=== PATIENT | female | born 1995 ===

== ENCOUNTER 2017-05-27 17:05 | Emergency (ER) | payer OTHER ==
[2017-05-27 17:37] VITALS: BP 118/84; PULSE 75; RESP 16; TEMP 99; O2SAT 96
--- NOTE | 2017-05-27 19:02 | EDPHY ---
H & P Stated Complaint: Anxiety attack;hx of anxiety;bilat ant rib soreness after hyperventilating HPI/ROS: CHIEF COMPLAINT: Anxiety attack HISTORY OF PRESENT ILLNESS: Patient complains of "I had the worst anxiety attack I've ever had." Symptoms started around 1:30 p.m.. This was right before she was supposed to head to the airport to fly back home to [place]. She felt anxious, sweaty, chest pain, tingling all 4 extremities. She says the symptoms were very severe and she felt as though she was going to from this. She contacted her mother and she recommended that she boat puller. She pulled over and contacted 911. She was evaluated by EMS. They recommended transfer to the hospital but she declined. She simply waited there until she felt better. This is approximately 1/2 to 2 hours later. She currently has no symptoms of any kind. She is just nervous that the symptoms were returned when she goes home. She specifically has no chest pain, no shortness of breath. No lower extremity erythema edema or pain. No recent travel or surgery. No history of venous thrombolic event. No other associated complaints or modifying factors. She was previously on medication for this, most recently July 2016. She has not seen anyone here in [place] for this. REVIEW OF SYSTEMS: Ten systems reviewed and are negative unless otherwise noted in the HPI PAST MEDICAL HISTORY: Anxiety disorder SOCIAL HISTORY: Lives in [facility]. Going to school at [employer] and just recently graduated FAMILY HISTORY: Noncontributory EXAMINATION General Appearance: Alert, no distress Head: normocephalic, atraumatic Eyes: Pupils equal and round, no conjunctival pallor or injection ENT, Mouth: Mucous membranes moist. Uvula midline. Airway widely patent. Neck: Normal inspection, supple, non-tender. Trachea midline Respiratory: Lungs are clear to auscultation. Cardiovascular: Regular rate and rhythm. No murmur. Gastrointestinal: Abdomen is soft and nontender Neurological: GCS 15. A&O, nonfocal, normal gait. No tremor. No dysmetria. Skin: Warm and dry, no rash Extremities: Nontender, no pedal edema Psychiatric: Mood and affect normal DIFFERENTIAL DIAGNOSES: Including but not limited to anxiety attack, anxiety, panic attack, depression, chest pain MDM: 6:55 p.m. Anxiety attack in a patient with known anxiety disorder. This was more severe than others, but she reports this as being the same as her previous anxiety attacks. She is currently symptom free at this time. No chest pain or shortness of breath. Vital signs are within normal limits. She is not suicidal or homicidal. She shows no outward signs of depression or inability to care for self. I will discharge her home with short course of hydroxyzine and short course of Ativan. She is actually supposed to be flying back home to [place] today. She will do so tomorrow. She will follow up with primary care physician in [place]. Return to emergency department for return of symptoms. She is comfortable with this plan and discharged home in stable condition. SUPERVISION: This patient was independently evaluated without direct examination by the attending physician. Case was discussed with attending physician. Source: Patient Exam Limitations: No limitations - Personal History LMP (Females 10-55): 8-14 Days Ago Current Tetanus Diphtheria and Acellular Pertussis (TDAP): Yes - Medical/Surgical History Other PMH: anxiety attacks - Social History Smoking Status: Never smoked Constitutional: Initial Vital Signs Temperature (C) 99.0 F 05/27/17 17:25 Heart Rate 75 05/27/17 17:25 Respiratory Rate 16 05/27/17 17:25 Blood Pressure 118/84 H 05/27/17 17:25 O2 Sat (%) 96 05/27/17 17:25 O2 Delivery Mode Room Air Allergies/Adverse Reactions: No Known Allergies Allergy (Unverified 05/27/17 17:36) Home Medications: Medication Instructions Recorded Control 05/27/17 LORazepam [Ativan] 0.5 mg PO TID PRN #6 tablet 05/27/17 hydrOXYzine HCL [Vistaril 25MG] 25 mg PO TID PRN #15 tab 05/27/17 Departure - Departure Disposition: Home, Routine, Self-Care Clinical Impression: Anxiety attack, Anxiety with limited-symptom attacks Condition: Good Instructions: Panic Disorder (ED), Anxiety (ED), Anxiolysis in Adults (ED) Additional Instructions: 1. Hydroxyzine as prescribed as needed 1st line 2. Ativan as prescribed as needed as second-line treatment 3. Follow up with primary care physician when he returns back to [place] tomorrow 4. Return here for any worsening symptoms Referrals: NONE *PRIMARY CARE P,. [Primary Care Provider] - As per Instructions Zayra Millan MD [Medical Doctor] - As per Instructions Prescriptions: hydrOXYzine HCL [Vistaril 25MG] 25 mg PO TID PRN #15 tab PRN Reason: Anxiety LORazepam [Ativan] 0.5 mg PO TID PRN #6 tablet PRN Reason: Anxiety
== END 2017-05-27 19:26 | disposition home or self-care (01) ==
DX: F41.9 Anxiety disorder, unspecified (principal)

== ENCOUNTER 2017-06-11 16:23 | Emergency (ER) | payer SELFPAY ==
[2017-06-11] MEDS ORDERED: ONDANSETRON 4 MG/2 ML VIAL IVP ONE (17:08)
[2017-06-11] MEDS ORDERED: NS 1,000 ML IV ONE (17:08)
--- NOTE | 2017-06-11 17:18 | EDPHY ---
H & P Time Seen by Provider: 06/11/17 17:07 HPI/ROS: CHIEF COMPLAINT: Vomiting. HISTORY OF PRESENT ILLNESS: This patient is a 22 year old female complaining of nausea and vomiting secondary to alcohol intake yesterday evening. She was out drinking in [place], and at some point became from friends and wandered around for several hours before taking an Uber home. She woke up this morning with vomitus in her bed, and has had one episode of emesis since then and continues to be nauseous. She feels very anxious as well. No abdominal pain, fever, shortness of breath, urinary complaints, or other associated symptoms. REVIEW OF SYSTEMS: Constitutional: No fever, no chills Eyes: No visual changes ENT: No sore throat Respiratory: No cough, no shortness of breath Cardiac: No chest pain Gastrointestinal: Nausea, vomiting, no abdominal pain Genitourinary: No hematuria, no dysuria Musculoskeletal: No leg pain or swelling Skin: No rash Neurological: No headache, no numbness, no weakness Psychiatric: No depression Past Medical/Surgical History: Denies Social History: [employer] Student. Originally from [place]. Smoking Status: Never smoked Physical Exam: General Appearance: Alert, no distress. Eyes: Pupils equal and round, no conjunctival pallor or injection ENT, Mouth: Mucous membranes moist Neck: Normal inspection Respiratory: Lungs are clear to auscultation Cardiovascular: Regular rate and rhythm Gastrointestinal: Abdomen is soft and nontender Neurological: A&O, nonfocal, normal gait Skin: Warm and dry, no rash Extremities: Nontender, no pedal edema Psychiatric: Mood and affect normal Constitutional: Initial Vital Signs Temperature (C) 36.3 C 06/11/17 16:38 Heart Rate 119 H 06/11/17 16:38 Respiratory Rate 22 H 06/11/17 16:38 Blood Pressure 125/99 H 06/11/17 16:38 O2 Sat (%) 99 06/11/17 16:38 O2 Delivery Mode Room Air Allergies/Adverse Reactions: No Known Allergies Allergy (Verified 06/11/17 16:34) Home Medications: Medication Instructions Recorded Control 05/27/17 Ondansetron Odt [Zofran Odt 4 mg 4 mg PO Q4 PRN #6 tab 06/11/17 (*)] Medical Decision Making ED Course/Re-evaluation: 22 year old female presenting with nausea and 2 episodes of emesis earlier today following alcohol use last night. Symptoms most likely secondary to excessive alcohol use. I do not suspect an alternative etiology for this patient's vomiting. Plan to administer 4mg IV Zofran and 1L IV NS for symptom relief. 17:58 Reassessed patient. She is feeling much better. Plan to discharge home in good condition. Follow up and return precautions discussed. The patient is comfortable with this plan. Differential Diagnosis: Differential diagnosis includes though it is not limited to appendicitis, cholecystitis, diverticulitis, pyelonephritis, bowel perforation, small bowel obstruction. - Data Points Medications Given: Discontinued Medications Sodium Chloride (Ns) 1,000 mls @ 0 mls/hr IV EDNOW ONE; Wide Open PRN Reason: Protocol Stop: 06/11/17 17:09 Last Admin: 06/11/17 17:20 Dose: 1,000 mls Ondansetron HCl (Zofran) 4 mg IVP EDNOW ONE Stop: 06/11/17 17:09 Last Admin: 06/11/17 17:20 Dose: 4 mg Departure - Departure Disposition: Home, Routine, Self-Care Clinical Impression: Vomiting Condition: Good Instructions: Acute Nausea and Vomiting (ED) Additional Instructions: 1. You may take Zofran as prescribed as needed for nausea. 2. Follow up with a primary care physician for symptoms unresolved in the next 1 -2 days. 3. Return to the Emergency Department for uncontrollable vomiting, fainting, or other worsening of condition. Referrals: [facility],. [Clinic] - As per Instructions Prescriptions: Ondansetron Odt [Zofran Odt 4 mg (*)] 4 mg PO Q4 PRN #6 tab PRN Reason: Nausea Report Scribed for: Tori Sanchez Report Scribed by: Thi Garcia Date of Report: 06/11/17 Time of Report: 17:30 Physician Review and Approval Statement: 06/11/17 17:30 Portions of this note were transcribed by a medical apparatus model maker. I personally performed a history, physical exam, medical decision making, and confirmed accuracy of information the transcribed note.
[2017-06-11 18:08] VITALS: BP 112/74; PULSE 82; RESP 20; TEMP 98.2; O2SAT 95
== END 2017-06-11 18:16 | disposition home or self-care (01) ==
DX: R11.10 Vomiting, unspecified (principal); E86.9 Volume depletion, unspecified
CPT/HCPCS: 96374; J2405